=== PATIENT | female | born 1950 | race Caucasian/White ===

== ENCOUNTER → 2016-11-25 | Outpatient (CLI) | payer BC ==
[~2016-11-25] MED LIST: CLARITIN10 MG PO; CLEOCIN150 MG PO; CORDROL20 MG PO; CORTISPORIN 1%-10 M1 OT; DARVOCET N 1001 TAB PO; FENOFIBRATE130 M1 PO; HYDROCODONE BIT1 T11 PO; MEDROL DOSEPAK4 MG PO; NAPROSYN500 MG PO; PENICILLIN VK500 MG PO; PEPCID20 MG PO; PRILOSEC20 M1 PO; PRILOSEC20 MG PO; PRINIVIL5 MG PO; SEPTRA DS 800 M1 TAB PO; TORADOL10 MG PO; TYLENOL WITH CO1 TA1 PO; ULTRAM50 MG PO; ZOCOR40 MG PO; ZOFRAN ODT4 MG PO; ZOFRAN ODT8 MG PO; ZOFRAN4 MG PO; ZYRTEC10 M1 PO; [UNRECOGNIZED DRUG - REMARK]
[2016-11-25 12:45] LABS: BASO % 0.3 % (0.0-1.0); EOS # 0.1 10*3/uL (0.0-0.4); EOS % 0.7 % (1.0-4.0); HEMATOCRIT 43.7 % (37.0-47.0); HEMOGLOBIN 14.3 g/dl (12.0-16.0); IG # 0.1 10*3/uL (0.0-0.1); LYMPH % 22.6 % (27.0-41.0); MEAN CELL VOLUME 91.2 fl (81.0-99.0); MEAN CORPUSCULAR HGB 29.9 pg (27.0-31.0); MEAN CORPUSCULAR HGB CONC 32.7 g/dl (33.0-37.0); MEAN PLATELET VOLUME 10.2 fl (9.6-12.3); MONO # 0.9 10*3/uL (0.1-1.0); MONO % 6.4 % (3.0-9.0); NEUT # 9.3 10*3/uL (2.3-7.9); NEUT % 69.6 % (47.0-73.0); PLATELET COUNT AUTOMATED 264 10*3/uL (130-400); RED BLOOD COUNT 4.79 10*6/uL (4.10-5.10); RED CELL DISTRI WIDTH 12.9 % (0-14.5); WHITE BLOOD COUNT 13.4 10*3/uL (4.8-10.8)
[2016-11-25 12:56] LABS: C-REACTIVE PROTEIN 2.1 MG/DL (0-0.3); URIC ACID 6.6 mg/dL (2.6-6.0)
== END | disposition home or self-care (01) ==
LOC: LAB 12:26
PROVIDERS: Physician Assistant
DX: M25.562 Pain in left knee (principal)

== ENCOUNTER → 2016-11-26 | Outpatient (CLI) | payer BC | END | disposition home or self-care (01) | LOC: MRI 12:58 | DX: M17.12 Unilateral primary osteoarthritis, left knee (principal); M11.262 Other chondrocalcinosis, left knee; M25.562 Pain in left knee; M25.462 Effusion, left knee ==

== ENCOUNTER → 2016-11-28 | Outpatient (CLI) | payer BC ==
[2016-11-28 11:08] LABS: BODY FLUID RBC 3000 /uL; BODY FLUID WBC 2144 /uL
[2016-11-28 11:53] LABS: BF LYMPHOCYTES 10 %; BF MACROPHAGES 41 %; BF NEUTROPHILS 49 %; BODY FLUID TYPE SYNOVIAL
== END | disposition home or self-care (01) ==
LOC: LAB 10:31
PROVIDERS: Orthopaedic Surgery
DX: M25.462 Effusion, left knee (principal)

== ENCOUNTER → 2017-06-04 | Outpatient (CLI) | payer BC ==
[2017-06-04 08:30] LABS: BASO % 0.5 % (0.0-1.0); EOS # 0.1 10*3/uL (0.0-0.4); EOS % 1.5 % (1.0-4.0); HEMATOCRIT 44.3 % (37.0-47.0); HEMOGLOBIN 14.6 g/dl (12.0-16.0); LYMPH # 2.1 10*3/uL (1.3-4.4); LYMPH % 34.7 % (27.0-41.0); MEAN CELL VOLUME 92.9 fl (81.0-99.0); MEAN CORPUSCULAR HGB 30.6 pg (27.0-31.0); MEAN PLATELET VOLUME 10.1 fl (9.6-12.3); MONO # 0.4 10*3/uL (0.1-1.0); MONO % 6.3 % (3.0-9.0); NEUT # 3.4 10*3/uL (2.3-7.9); NEUT % 56.5 % (47.0-73.0); PLATELET COUNT AUTOMATED 247 10*3/uL (130-400); RED BLOOD COUNT 4.77 10*6/uL (4.10-5.10); WHITE BLOOD COUNT 6.1 10*3/uL (4.8-10.8)
[2017-06-04 08:38] LABS: ALBUMIN 3.7 gm/dl (3.1-4.5); ALKALINE PHOSPHATASE 91 U/L (45-117); BUN 18 mg/dl (7-24); CHLORIDE 104 mmol/L (98-107); CHOLESTEROL 226 mg/dL (<200); CREATININE 0.74 mg/dL (0.55-1.02); HDL CHOLESTEROL 44 mg/dl (40-60); LDL CHOLESTEROL 121 mg/dL (9-159); POTASSIUM 4.8 mmol/L (3.5-5.1); SGOT/AST 11 IU/L (3-35); SGPT/ALT 20 U/L (12-78); SODIUM 138 mmol/L (136-145); TOTAL PROTEIN 7.8 gm/dL (6.4-8.2); TRIGLYCERIDES 307 mg/dl (<150); VLDL CHOLESTEROL 61 mg/dL (6-40)
== END | disposition home or self-care (01) ==
LOC: LAB 07:51
PROVIDERS: Family Medicine
DX: G43.009 Migraine without aura, not intractable, without status migrainosus (principal); R53.83 Other fatigue; E78.00 Pure hypercholesterolemia, unspecified

== ENCOUNTER 2018-11-05 14:36 | Inpatient (IN) | payer MEDICARE ==
[~2018-11-05] VITALS: Ht 152.4 cm; Wt 70.0 kg
--- NOTE | ~2018-11-05 | EKG ---
[place], [place] ELECTROCARDIOGRAM REPORT NAME: UNIQUE ROBLES UNIT #: [id number] ROOM: 515 DOCTOR: ANGLE DRAFT REPORT BIRTHDATE: [birth year] [facility] Test Date: 2018-11-05 Test Time: 14:40:58 Pat Name: UNIQUE ROBLES Department: Room: [facility] Gender: F Application Architect Manager: : 1950 Requested By: GISELLE REARDON Order Number: [id number] Reading MD: Jarvis Oseguera MD Measurements Intervals [place] Rate: 71 P: 12 ID: 137 QRS: -21 QRSD: 88 T: 39 QT: 362 QTc: 394 Interpretive Statements Sinus rhythm Borderline left axis deviation Low voltage, precordial leads Electronically Signed On 11-06-2018 13:46:58 PDT by Jarvis Oseguera MD CM:EKGRPT:ELECTROCARDIOGRAM REPORT [id number] GISELLE DELGADO DRAFT REPORT GISELLE REARDON DO
--- NOTE | ~2018-11-05 | ST ---
[place], [place] EXERCISE STRESS TEST REPORT NAME: UNIQUE ROBLES UNIT #: [id number] ROOM: 515 DOCTOR: DARIO MC MD BIRTHDATE: [birth year] DOS: 11/06/2018 LEXISCAN STRESS EKG REFERRING PHYSICIAN: Dr. Veras. INDICATION: Central chest pain. The patient underwent standard protocol Lexiscan stress EKG. Baseline EKG showed normal sinus rhythm, nonspecific ST-T wave changes with the baseline heart rate of 60 with blood pressure 116/64. The patient's peak heart rate was 108 with a blood pressure 140/80. The patient had no overt chest pain, had some chest heaviness with some nonspecific ST-T wave changes and no arrhythmias. SUMMARY OF FINDINGS: Unremarkable Lexiscan stress EKG. Please see separate report for perfusion scan imaging results. DARIO MC MD CM:STRESS:EXERCISE STRESS TEST REPORT [id number] DARIO MC MD
--- NOTE | ~2018-11-05 | PR ---
[place], [place] PROGRESS NOTE NAME: UNIQUE ROBLES UNIT #: [id number] ROOM: 515 DOCTOR: SANAZ QUIÑONEZ MD BIRTHDATE: [birth year] DOS: 11/08/2018 CARDIOLOGY FOLLOWUP REASON FOR VISIT: Abnormal stress test and chest pain. SUBJECTIVE: The patient is feeling better. She had one episode of chest pain this morning and resolved without any intervention. It is midsternal pain like a pressure, came at rest with no associated symptoms, no radiation. She denies any palpitation or dizziness, no PND, no orthopnea. No nausea, vomiting or diarrhea. REVIEW OF SYSTEMS: Review of the 10 system negative except as mentioned above. RHYTHM STRIPS: The patient is in sinus rhythm. PHYSICAL EXAMINATION: VITAL SIGNS: Blood pressure 114/70, pulse 59, respiration rate 20, weight 70 kilos. GENERAL: Alert, comfortable, in no acute distress. HEAD AND NECK: Pupils are round and equal, no jaundice. Tongue was moist and pharynx clear. NECK: Supple, no distended neck veins, no carotid bruit. CHEST: Symmetrical, nontender. LUNGS: Clear to auscultation bilaterally. HEART: Regular rhythm, no S3. ABDOMEN: Benign, nontender. Bowel sounds normal. EXTREMITIES: No edema. Distal pulses palpable. SKIN: Warm and dry. No cyanosis, no clubbing. MEDICATIONS AND LABORATORY DATA: Reviewed. IMPRESSION: 1. Chest pain, myocardial infarction ruled out. 2. Abnormal stress test with a large anteroapical ischemia. 3. Coronary artery disease, cardiac catheterization in June 2018 in [place] showed single-vessel disease with 50-70% per the patient, reports not available. 4. Hypertension. 5. Sinus bradycardia. RECOMMENDATIONS: Continue current medications. She will be undergoing cardiac catheterization tomorrow at [facility]. Again risks, benefits and complications were discussed and she is agreeable. No family at bedside at the time of examination. The patient to follow up with [facility] at [facility] after discharge. [place], [place] PROGRESS NOTE NAME: UNIQUE ROBLES UNIT #: [id number] ROOM: 515 DOCTOR: SANAZ QUIÑONEZ MD BIRTHDATE: [birth year] SANAZ QUIÑONEZ MD CM:FOREST 55 SANAZ QUIÑONEZ MD 11/09/18 1329 interface
--- NOTE | ~2018-11-05 | EKG ---
[place], [place] ELECTROCARDIOGRAM REPORT NAME: UNIQUE ROBLES UNIT #: [id number] ROOM: [facility] DOCTOR: ANGLE DRAFT REPORT BIRTHDATE: [birth year] [facility] Test Date: 2018-11-06 Test Time: 15:22:12 Pat Name: UNIQUE ROBLES Department: Room: [facility] 1 Gender: F International Account Representative: Hiwot Abarca : 1950 Requested By: RICHI VELAZCO Order Number: [id number] Reading MD: Julia Leach Measurements Intervals [place] Rate: 62 P: 4 HI: 136 QRS: -12 QRSD: 87 T: 28 QT: 398 QTc: 405 Interpretive Statements Sinus rhythm Low voltage, precordial leads Compared to ECG 11/05/2018 14:40:58 No significant changes Electronically Signed On 11-08-2018 11:02:21 PDT by Julia Leach CM:EKGRPT:ELECTROCARDIOGRAM REPORT [id number] RICHI DELGADO DRAFT REPORT RICHI VELAZCO DO
--- NOTE | ~2018-11-05 | PR ---
[place], [place] PROGRESS NOTE NAME: UNIQUE ROBLES UNIT #: [id number] ROOM: 515 DOCTOR: SANAZ QUIÑONEZ MD BIRTHDATE: [birth year] DOS: 11/07/2018 CARDIOLOGY PROGRESS NOTE REASON FOR VISIT: Chest pain, abnormal stress test. The patient currently denies chest pain. No shortness of breath. No palpitations or dizziness. No edema, no orthopnea. No nausea, vomiting, diarrhea. No bladder or bowel symptoms. REVIEW OF SYSTEMS: Review of the 10 systems negative except as mentioned above. RHYTHM STRIPS: The patient was in sinus rhythm. PHYSICAL EXAMINATION: VITAL SIGNS: Blood pressure 110/70, pulse 53, respirations 20. Weight is 70 pounds, BMI 30.1. GENERAL: Alert, comfortable, in no acute distress. HEAD AND NECK: Pupils are round and equal. Tongue is moist and pharynx clear. NECK: Supple, no distended neck veins, no carotid bruit. CHEST: Symmetrical, nontender. LUNGS: Clear to auscultation bilaterally. HEART: Irregularly irregular rhythm, no S3. ABDOMEN: Benign, nontender. Bowel sounds normal. EXTREMITIES: Showed no edema. Distal pulses palpable. SKIN: Warm and dry. No cyanosis, no clubbing. RECTAL: Deferred. GENITOURINARY: Deferred. MEDICATIONS AND LABS: Reviewed. IMPRESSION: 1. Chest pain, myocardial infarction, ruled out. 2. Abnormal stress test with a large anteroapical ischemia. 3. History of coronary artery disease by cardiac catheterization in 06/2018 in [place]. 4. Hypertension. 5. Dyslipidemia. 6. Sinus bradycardia. RECOMMENDATIONS: Continue current medication. The patient seen by cardiac, catheterization on Friday. Risks, benefits, and alternatives were discussed with the patient and her who is at bedside and all questions answered. [place], [place] PROGRESS NOTE NAME: UNIQUE ROBLES UNIT #: [id number] ROOM: 515 DOCTOR: SANAZ QUIÑONEZ MD BIRTHDATE: [birth year] SANAZ QUIÑONEZ MD CM:PNTRANS 56 [id number] SANAZ QUIÑONEZ MD 11/26/18 0738 interface
[2018-11-05 14:46] VITALS: BP 125/59
[2018-11-05 15:03] LABS: BASO % 0.5 % (0.0-1.0); EOS # 0.1 10*3/uL (0.0-0.4); EOS % 1.6 % (1.0-4.0); HEMATOCRIT 39.3 % (37.0-47.0); HEMOGLOBIN 13.4 g/dl (12.0-16.0); LYMPH # 3.1 10*3/uL (1.3-4.4); LYMPH % 48.6 % (27.0-41.0); MEAN CELL VOLUME 90.8 fl (81.0-99.0); MEAN CORPUSCULAR HGB 30.9 pg (27.0-31.0); MEAN CORPUSCULAR HGB CONC 34.1 g/dl (33.0-37.0); MEAN PLATELET VOLUME 10.2 fl (9.6-12.3); MONO # 0.5 10*3/uL (0.1-1.0); MONO % 7.6 % (3.0-9.0); NEUT # 2.6 10*3/uL (2.3-7.9); NEUT % 41.5 % (47.0-73.0); PLATELET COUNT AUTOMATED 222 10*3/uL (130-400); RED BLOOD COUNT 4.33 10*6/uL (4.10-5.10); RED CELL DISTRI WIDTH 12.7 % (0-14.5); WHITE BLOOD COUNT 6.3 10*3/uL (4.8-10.8)
[2018-11-05 15:12] LABS: ACT PARTIAL THROMBO TIME 22.6 SECONDS (20.8-31.5)
[2018-11-05 15:20] VITALS: BP 135/68
[2018-11-05 15:29] LABS: ALBUMIN 3.6 gm/dl (3.1-4.5); ALKALINE PHOSPHATASE 89 U/L (45-117); BUN 22 mg/dl (7-24); CHLORIDE 107 mmol/L (98-107); CREATININE 0.97 mg/dL (0.55-1.02); SGOT/AST 13 IU/L (3-35); SGPT/ALT 18 U/L (12-78); SODIUM 142 mmol/L (136-145); TOTAL PROTEIN 7.1 gm/dL (6.4-8.2)
[2018-11-05 15:33] LABS: TROPONIN I < 0.015 ng/ml (<0.045)
[2018-11-05 15:52] VITALS: BP 110/63
[2018-11-05 16:16] VITALS: BP 127/64
[2018-11-05 16:55] VITALS: BP 123/62
[2018-11-05] MEDS ORDERED: ROSUVASTATIN CA10 MG PO (17:25)
[2018-11-05] MEDS ORDERED: METOPROLOL25 MG PO (17:26)
[2018-11-05] MEDS ORDERED: AMLODIPINE BESYL5 MG PO (17:27)
[2018-11-05] MEDS ORDERED: IRON325 M1 PO (17:29)
[2018-11-05] MEDS ORDERED: ASPIRIN ADULT L81 M2 PO (17:30)
[2018-11-05] MEDS ORDERED: NATROL 5-HTP50 MG PO (17:31)
[2018-11-05 20:00] VITALS: BP 121/66
[2018-11-06] VITALS: BP 102/67
[2018-11-06 06:14] LABS: BASO % 0.6 % (0.0-1.0); EOS # 0.2 10*3/uL (0.0-0.4); EOS % 2.3 % (1.0-4.0); HEMATOCRIT 41.3 % (37.0-47.0); HEMOGLOBIN 13.1 g/dl (12.0-16.0); LYMPH # 3.3 10*3/uL (1.3-4.4); LYMPH % 47.6 % (27.0-41.0); MEAN CELL VOLUME 93.4 fl (81.0-99.0); MEAN CORPUSCULAR HGB 29.6 pg (27.0-31.0); MEAN CORPUSCULAR HGB CONC 31.7 g/dl (33.0-37.0); MEAN PLATELET VOLUME 10.4 fl (9.6-12.3); MONO # 0.5 10*3/uL (0.1-1.0); NEUT % 42.2 % (47.0-73.0); PLATELET COUNT AUTOMATED 203 10*3/uL (130-400); RED BLOOD COUNT 4.42 10*6/uL (4.10-5.10); RED CELL DISTRI WIDTH 12.9 % (0-14.5)
[2018-11-06 06:45] LABS: ALBUMIN 3.4 gm/dl (3.1-4.5); ALKALINE PHOSPHATASE 78 U/L (45-117); BUN 17 mg/dl (7-24); CHLORIDE 107 mmol/L (98-107); CHOLESTEROL 110 mg/dL (<200); HDL CHOLESTEROL 44 mg/dl (40-60); LDL CHOLESTEROL 41 mg/dL (9-159); PHOSPHOROUS 4.1 mg/dL (2.5-4.9); POTASSIUM 3.8 mmol/L (3.5-5.1); SGOT/AST 16 IU/L (3-35); SGPT/ALT 16 U/L (12-78); SODIUM 142 mmol/L (136-145); TOTAL PROTEIN 6.7 gm/dL (6.4-8.2); TRIGLYCERIDES 127 mg/dl (<150); VLDL CHOLESTEROL 25 mg/dL (6-40)
[2018-11-06 12:00] VITALS: BP 124/59
[2018-11-06 16:00] VITALS: BP 136/80
[2018-11-06 20:00] VITALS: BP 100/67
[2018-11-07] VITALS: BP 111/69
[2018-11-07 08:00] VITALS: BP 110/70
[2018-11-07 12:00] VITALS: BP 106/60
[2018-11-07 16:00] VITALS: BP 93/60
[2018-11-07 20:00] VITALS: BP 115/66
[2018-11-08] VITALS: BP 106/62
[2018-11-08 07:03] LABS: BASO % 0.5 % (0.0-1.0); EOS # 0.2 10*3/uL (0.0-0.4); EOS % 2.6 % (1.0-4.0); LYMPH # 3.6 10*3/uL (1.3-4.4); MEAN CELL VOLUME 94.3 fl (81.0-99.0); MEAN CORPUSCULAR HGB 30.7 pg (27.0-31.0); MEAN CORPUSCULAR HGB CONC 32.5 g/dl (33.0-37.0); MEAN PLATELET VOLUME 10.2 fl (9.6-12.3); MONO # 0.5 10*3/uL (0.1-1.0); MONO % 7.4 % (3.0-9.0); NEUT # 2.3 10*3/uL (2.3-7.9); NEUT % 35.2 % (47.0-73.0); PLATELET COUNT AUTOMATED 207 10*3/uL (130-400); RED BLOOD COUNT 4.24 10*6/uL (4.10-5.10); WHITE BLOOD COUNT 6.6 10*3/uL (4.8-10.8)
[2018-11-08 07:32] LABS: BUN 14 mg/dl (7-24); CHLORIDE 107 mmol/L (98-107); CREATININE 0.78 mg/dL (0.55-1.02); POTASSIUM 4.7 mmol/L (3.5-5.1); SODIUM 141 mmol/L (136-145)
[2018-11-08 08:00] VITALS: BP 114/70; BP 116/54
[2018-11-08 12:00] VITALS: BP 100/62
[2018-11-08 16:00] VITALS: BP 108/67
[2018-11-08 20:00] VITALS: BP 123/64
[2018-11-09] VITALS: BP 101/47
[2018-11-12] MEDS ORDERED: GOOD NEIGHBOR P20 MG PO (04:10)
[2018-11-12] MEDS ORDERED: NITROGLYCERIN0.4 MG SL (04:11)
[2018-11-12] MEDS ORDERED: BRILINTA90 M1 PO (04:12)
[2018-11-12] MEDS ORDERED: CRESTOR40 M1 PO (04:12)
[2018-11-13] MEDS ORDERED: LOPRESSOR25 MG PO (11:41)
[2018-11-13] MEDS ORDERED: NORVASC2.5 MG PO (11:41)
[2018-11-13] MEDS ORDERED: IMDUR SA30 MG PO (11:41)
[2018-11-13] MEDS ORDERED: BRILINTA90 M1 PO (11:41)
[2019-02-24] MEDS ORDERED: PROTONIX40 MG PO (09:09)
[2019-02-24] MEDS ORDERED: LOPRESSOR25 MG PO (09:09)
[2019-02-24] MEDS ORDERED: NORVASC2.5 MG PO (09:10)
== END 2018-11-09 09:37 | disposition other institution (70) | DRG 311 ==
LOC: ED 14:36 → 5E 16:14 → EDHOLD 16:14 → 5E 16:21
PROVIDERS: Emergency Medicine; Student in an Organized Health Care Education/Training Program; ADMIT Internal Medicine
DX: I24.9 Acute ischemic heart disease, unspecified (principal); I10 Essential (primary) hypertension; E83.41 Hypermagnesemia; E78.5 Hyperlipidemia, unspecified; M19.90 Unspecified osteoarthritis, unspecified site; K21.9 Gastro-esophageal reflux disease without esophagitis; G43.909 Migraine, unspecified, not intractable, without status migrainosus; Z87.891 Personal history of nicotine dependence; Z88.2 Allergy status to sulfonamides; Z90.710 Acquired absence of both cervix and uterus; Z72.89 Other problems related to lifestyle; Z82.3 Family history of stroke; Z79.82 Long term (current) use of aspirin

== ENCOUNTER → 2019-02-24 | Outpatient (CLI) | payer MEDICARE ==
[~2019-02-24] MED LIST changes: +AMLODIPINE BESYL5 MG PO; +ASPIRIN ADULT L81 M2 PO; +BRILINTA90 M1 PO; +CRESTOR40 M1 PO; +GOOD NEIGHBOR P20 MG PO; +IMDUR SA30 MG PO; +IRON325 M1 PO; +LOPRESSOR25 MG PO; +METOPROLOL25 MG PO; +NATROL 5-HTP50 MG PO; +NITROGLYCERIN0.4 MG SL; +NORVASC2.5 MG PO; +PROTONIX40 MG PO; +ROSUVASTATIN CA10 MG PO
--- NOTE | ~2019-02-24 | ST ---
[place], [place] EXERCISE STRESS TEST REPORT NAME: UNIQUE ROBLES UNIT #: [id number] ROOM: DOCTOR: CELY GILBERT MD BIRTHDATE: [birth year] DOS: 02/24/2019 PHARMACOLOGICAL NUCLEAR STRESS TEST REASON FOR TESTING: Atypical chest pain. EKG: Baseline EKG, normal sinus rhythm, normal EKG. PROCEDURE: After informed consent was obtained, the patient received a rapid infusion of regadenoson 0.4 mg IV followed by saline flush. The patient experienced chest tightness and dyspnea symptoms. There were no EKG changes. There was an appropriate heart rate response to the infusion. Isotope was injected 40 seconds later. IMPRESSION: Well tolerated pharmacological stress test. Please see the separate imaging report for further details of the stress test results. Cely Gilbert MD CM:STRESS:EXERCISE STRESS TEST REPORT [id number] CELY GILBERT MD
--- NOTE | 2019-02-24 08:15 | NUR ---
INFORMED CONSENT OBTAINED FOR A LEXISCAN STRESS TEST WITH DR ROLDAN. RESTING EKG SINUS MAXIMUS WITH A HT RT OF 58, AND A BP OF 120/76. LUNG SOUNDS CLEAR WITH AN SPO2 OF 100% VIA RA. COMPLETED ONE MINUTE OF A LEXISCAN PROTOCOL RECEIVING LEXISCAN 0.4 MG OVER 10 SECONDS. DEVELOPED LIGHTHEADEDNESS, SOB, CHEST AND BACK DISCOMFORT WELL BEING SHAKY. ALL SYMPTOMS RELIEVED IN RECOVERY. HAD A PEAK HT RT OF 116, WITH A BP OF 136/78. LAST RECOVERY HT RT OF 85, WITH A BP OF 130/80. AWAITING NUCLEAR IMAGING IN STABLE CONDITION.
== END | disposition home or self-care (01) ==
LOC: CARD 01:07
DX: R07.2 Precordial pain (principal); I25.119 Atherosclerotic heart disease of native coronary artery with unspecified angina pectoris; R53.81 Other malaise; R07.89 Other chest pain

== ENCOUNTER → 2019-02-26 | Outpatient (CLI) | payer MEDICARE ==
[2019-02-26 13:22] LABS: CREATININE 1.08 mg/dL (0.55-1.02)
== END | disposition home or self-care (01) ==
LOC: LAB 00:02 → CT 13:00 → LAB 14:00 → US 15:00
PROVIDERS: Physician Assistant Medical
DX: K57.30 Diverticulosis of large intestine without perforation or abscess without bleeding (principal); R31.9 Hematuria, unspecified; R10.2 Pelvic and perineal pain; Z90.710 Acquired absence of both cervix and uterus

== ENCOUNTER → 2020-04-21 | Outpatient (CLI) | payer MEDICARE ==
[2020-04-21 08:28] LABS: BASO % 0.5 % (0.0-1.0); EOS # 0.1 10*3/uL (0.0-0.4); EOS % 1.1 % (1.0-4.0); HEMATOCRIT 45.8 % (37.0-47.0); LYMPH # 2.2 10*3/uL (1.3-4.4); LYMPH % 27.8 % (27.0-41.0); MEAN CELL VOLUME 92.9 fl (81.0-99.0); MEAN CORPUSCULAR HGB CONC 32.3 g/dl (33.0-37.0); MEAN PLATELET VOLUME 10.2 fl (9.6-12.3); MONO # 0.7 10*3/uL (0.1-1.0); MONO % 8.3 % (3.0-9.0); NEUT # 4.9 10*3/uL (2.3-7.9); NEUT % 61.9 % (47.0-73.0); PLATELET COUNT AUTOMATED 216 10*3/uL (130-400); RED BLOOD COUNT 4.93 10*6/uL (4.10-5.10); RED CELL DISTRI WIDTH 13.1 % (0-14.5); WHITE BLOOD COUNT 7.9 10*3/uL (4.8-10.8)
[2020-04-21 08:54] LABS: ALKALINE PHOSPHATASE 78 U/L (45-117); BUN 22 mg/dl (7-24); CHLORIDE 104 mmol/L (98-107); CHOLESTEROL 126 mg/dL (<200); CREATININE 1.07 mg/dL (0.55-1.02); HDL CHOLESTEROL 60 mg/dl (40-60); LDL CHOLESTEROL 41 mg/dL (9-159); POTASSIUM 3.8 mmol/L (3.5-5.1); SGOT/AST 10 IU/L (3-35); SGPT/ALT 25 U/L (12-78); SODIUM 138 mmol/L (136-145); TOTAL PROTEIN 8.1 gm/dL (6.4-8.2); TRIGLYCERIDES 124 mg/dl (<150); VLDL CHOLESTEROL 25 mg/dL (6-40)
[2020-04-21 08:55] LABS: URIC ACID 3.8 mg/dL (2.6-6.0)
[2020-04-21 08:57] LABS: BACTERIA 2+; BILIRUBIN NEGATIVE; BLOOD 1+ (NEGATIVE); CLARITY CLEAR (CLEAR); COLOR YELLOW (YELLOW); GLUCOSE NEGATIVE; KETONE NEGATIVE; LEUKO ESTERASE TRACE (NEGATIVE); NITRITE NEGATIVE (NEGATIVE); PH 6.5 (4.5-8.0)
[2020-04-21 08:58] LABS: MUCOUS 1+
[2020-04-21 09:14] LABS: PTH INTACT 35.6 pg/mL (18.5-88.0); VITAMIN D, 25-HYDROXY 53.5 ng/mL (30-100)
[2020-04-22 10:07] LABS: HEPATITIS B SURFACE AB Non Reactive (.); HEPATITIS B SURFACE AG Negative (Negative); TOTAL PROTEIN, SERUM 7.1 g/dL (6.0-8.5)
[2020-04-22 12:11] LABS: ANTI-STREPTOLYSIN O AB 34.3 IU/mL (0.0-200.0); COMPLEMENT C4 30 mg/dL (14-44)
[2020-04-22 13:06] LABS: CREATININE,URINE 111.1 mg/dL (Not Estab.)
[2020-04-24 12:06] LABS: ANTI-DSDNA ANTIBODIES 2 IU/mL (0-9)
[2020-04-25 14:11] LABS: A/G RATIO 1.3 (0.7-1.7); ALPHA-1-GLOBULIN 0.2 g/dL (0.0-0.4); ALPHA-2-GLOBULIN 0.8 g/dL (0.4-1.0); GLOBULIN, TOTAL 3.1 g/dL (2.2-3.9); M-SPIKE Not Observed g/dL (Not Observed)
[2020-04-25 17:10] LABS: ATYPICAL PANCA <1:20 titer (Neg:<1:20); CYTOPLASMIC (C-ANCA) <1:20 titer (Neg:<1:20)
[2020-04-26 06:07] LABS: ANTI-DNASE B STREP AB 82 U/mL (0-120)
[2020-04-26 15:10] LABS: ALBUMIN, URINE 23.6 % (.); ALPHA-1-GLOBULIN, URINE 5.6 % (.); ALPHA-2-GLOBULIN, URINE 31.4 % (.); BETA GLOBULIN, URINE 26.2 % (.); GAMMA GLOBULIN, URINE 13.2 % (.); M-SPIKE, % Comment: % (Not Observed); PROTEIN,TOTAL - URINE RANDOM 130.1 mg/dL (Not Estab.)
== END | disposition home or self-care (01) ==
LOC: LAB 07:44
PROVIDERS: Internal Medicine Nephrology; ATTEND Family Medicine
DX: I12.9 Hypertensive chronic kidney disease with stage 1 through stage 4 chronic kidney disease, or unspecified chronic kidney disease (principal); N18.2 Chronic kidney disease, stage 2 (mild); I25.10 Atherosclerotic heart disease of native coronary artery without angina pectoris; R31.9 Hematuria, unspecified; R80.9 Proteinuria, unspecified; E55.9 Vitamin D deficiency, unspecified; Z79.899 Other long term (current) drug therapy

== ENCOUNTER → 2020-06-02 | Outpatient (CLI) | payer MEDICARE | END | disposition home or self-care (01) | LOC: RESCLI 09:00 | PROVIDERS: ATTEND Family Medicine | DX: Z95.5 Presence of coronary angioplasty implant and graft (principal); I10 Essential (primary) hypertension; K21.9 Gastro-esophageal reflux disease without esophagitis; Z86.79 Personal history of other diseases of the circulatory system; Z79.899 Other long term (current) drug therapy; Z23 Encounter for immunization; Z98.890 Other specified postprocedural states; Z88.0 Allergy status to penicillin ==

== ENCOUNTER → 2020-11-07 | Outpatient (CLI) | payer MEDICARE ==
[~2020-11-07] MED LIST changes: +CLOPIDOGREL75 MG PO; +DULCOLAX STOOL100 M1 PO; +LIFE-LINE GLUC480 ML PO; +OMEPRAZOLE40 MG PO; +VITAMIN B121000 MC1 PO; +VITAMIN D350 MCG PO
[2020-11-07 10:40] LABS: BASO % 0.3 % (0.0-1.0); EOS # 0.1 10*3/uL (0.0-0.4); EOS % 1.4 % (1.0-4.0); HEMATOCRIT 42.5 % (37.0-47.0); LYMPH # 1.9 10*3/uL (1.3-4.4); LYMPH % 31.3 % (27.0-41.0); MEAN CORPUSCULAR HGB 29.9 pg (27.0-31.0); MEAN CORPUSCULAR HGB CONC 31.8 g/dl (33.0-37.0); MEAN PLATELET VOLUME 10.2 fl (9.6-12.3); MONO # 0.5 10*3/uL (0.1-1.0); MONO % 7.6 % (3.0-9.0); NEUT # 3.5 10*3/uL (2.3-7.9); NEUT % 59.2 % (47.0-73.0); PLATELET COUNT AUTOMATED 194 10*3/uL (130-400); RED BLOOD COUNT 4.52 10*6/uL (4.10-5.10); RED CELL DISTRI WIDTH 13.2 % (0-14.5); WHITE BLOOD COUNT 5.9 10*3/uL (4.8-10.8)
[2020-11-07 11:13] LABS: ALBUMIN 3.7 gm/dl (3.1-4.5); BUN 17 mg/dl (7-24); CHLORIDE 107 mmol/L (98-107); CHOLESTEROL 113 mg/dL (<200); CREATININE 0.86 mg/dL (0.55-1.02); POTASSIUM 4.2 mmol/L (3.5-5.1); SGOT/AST 15 IU/L (3-35); SGPT/ALT 26 U/L (12-78); SODIUM 139 mmol/L (136-145); TOTAL PROTEIN 7.5 gm/dL (6.4-8.2); TRIGLYCERIDES 154 mg/dl (<150); VLDL CHOLESTEROL 31 mg/dL (6-40)
[2020-11-07 11:14] LABS: ALKALINE PHOSPHATASE 95 U/L (45-117); HDL CHOLESTEROL 51 mg/dl (40-60); LDL CHOLESTEROL 31 mg/dL (9-159)
== END | disposition home or self-care (01) ==
LOC: LAB 10:17
PROVIDERS: ATTEND Family Medicine
DX: I25.10 Atherosclerotic heart disease of native coronary artery without angina pectoris (principal)

== ENCOUNTER → 2020-11-24 | Outpatient (CLI) | payer MEDICARE | END | disposition home or self-care (01) | LOC: CARD 00:40 | PROVIDERS: ATTEND Internal Medicine Cardiovascular Disease | DX: I10 Essential (primary) hypertension (principal); R07.2 Precordial pain ==

== ENCOUNTER → 2021-05-21 | Outpatient (CLI) | payer MEDICARE | END | disposition home or self-care (01) | LOC: RESCLI 06:49 | PROVIDERS: ATTEND Internal Medicine Nephrology | DX: I25.10 Atherosclerotic heart disease of native coronary artery without angina pectoris (principal); I10 Essential (primary) hypertension; K21.9 Gastro-esophageal reflux disease without esophagitis; K59.00 Constipation, unspecified; E56.9 Vitamin deficiency, unspecified; E53.8 Deficiency of other specified B group vitamins; E55.9 Vitamin D deficiency, unspecified; Z95.5 Presence of coronary angioplasty implant and graft; Z86.79 Personal history of other diseases of the circulatory system; Z87.891 Personal history of nicotine dependence; Z90.710 Acquired absence of both cervix and uterus; Z98.890 Other specified postprocedural states; Z79.82 Long term (current) use of aspirin; Z79.899 Other long term (current) drug therapy ==

== ENCOUNTER → 2021-05-31 | Outpatient (CLI) | payer MEDICARE ==
[2021-05-31 08:30] LABS: BASO % 0.6 % (0.0-1.0); EOS # 0.1 10*3/uL (0.0-0.4); EOS % 2.3 % (1.0-4.0); HEMATOCRIT 43.7 % (37.0-47.0); LYMPH % 32.7 % (27.0-41.0); MEAN CELL VOLUME 93.4 fl (81.0-99.0); MEAN CORPUSCULAR HGB 29.5 pg (27.0-31.0); MEAN CORPUSCULAR HGB CONC 31.6 g/dl (33.0-37.0); MEAN PLATELET VOLUME 10.5 fl (9.6-12.3); MONO # 0.5 10*3/uL (0.1-1.0); MONO % 8.6 % (3.0-9.0); NEUT # 3.4 10*3/uL (2.3-7.9); NEUT % 55.5 % (47.0-73.0); PLATELET COUNT AUTOMATED 222 10*3/uL (130-400); RED BLOOD COUNT 4.68 10*6/uL (4.10-5.10); RED CELL DISTRI WIDTH 13.6 % (0-14.5); WHITE BLOOD COUNT 6.2 10*3/uL (4.8-10.8)
[2021-05-31 08:33] LABS: BILIRUBIN Negative (Negative); BLOOD 1+ (Negative); CLARITY Cloudy (Clear); COLOR Dark Yellow (Yellow); GLUCOSE Negative (Negative); KETONE Negative (Negative); LEUKO ESTERASE 1+ (Negative); NITRITE Negative (Negative); PH 5.5 (4.5-8.0); SPECIFIC GRAVITY 1.015 (1.001-1.030)
[2021-05-31 08:46] LABS: ALBUMIN 3.8 gm/dl (3.1-4.5); ALKALINE PHOSPHATASE 73 U/L (45-117); BUN 23 mg/dl (7-24); CHLORIDE 106 mmol/L (98-107); CHOLESTEROL 109 mg/dL (<200); LDL CHOLESTEROL 31 mg/dL (9-159); POTASSIUM 4.2 mmol/L (3.5-5.1); SGOT/AST 19 IU/L (3-35); SGPT/ALT 31 U/L (12-78); SODIUM 138 mmol/L (136-145); TOTAL PROTEIN 7.6 gm/dL (6.4-8.2); TRIGLYCERIDES 140 mg/dl (<150)
[2021-05-31 08:47] LABS: URINE CREATININE RANDOM 80.6 mg/dL
[2021-05-31 10:37] LABS: BACTERIA 3+; MUCOUS 2+
== END | disposition home or self-care (01) ==
LOC: LAB 07:59
PROVIDERS: Internal Medicine Nephrology; ATTEND Family Medicine
DX: R80.9 Proteinuria, unspecified (principal); I25.10 Atherosclerotic heart disease of native coronary artery without angina pectoris; K21.9 Gastro-esophageal reflux disease without esophagitis; R73.9 Hyperglycemia, unspecified; R31.9 Hematuria, unspecified; R73.01 Impaired fasting glucose; I12.9 Hypertensive chronic kidney disease with stage 1 through stage 4 chronic kidney disease, or unspecified chronic kidney disease; N18.2 Chronic kidney disease, stage 2 (mild); E55.9 Vitamin D deficiency, unspecified

== ENCOUNTER → 2022-02-20 | Outpatient (CLI) | payer MEDICARE ==
[2022-02-20 10:20] LABS: BASO % 0.4 % (0.0-1.0); EOS # 0.1 10*3/uL (0.0-0.4); EOS % 1.6 % (1.0-4.0); HEMATOCRIT 44.8 % (37.0-47.0); MEAN CELL VOLUME 94.1 fl (81.0-99.0); MEAN CORPUSCULAR HGB 30.5 pg (27.0-31.0); MEAN CORPUSCULAR HGB CONC 32.4 g/dl (33.0-37.0); MEAN PLATELET VOLUME 10.4 fl (9.6-12.3); MONO # 0.4 10*3/uL (0.1-1.0); MONO % 7.2 % (3.0-9.0); NEUT # 3.2 10*3/uL (2.3-7.9); NEUT % 55.6 % (47.0-73.0); PLATELET COUNT AUTOMATED 188 10*3/uL (130-400); RED BLOOD COUNT 4.76 10*6/uL (4.10-5.10); RED CELL DISTRI WIDTH 13.5 % (0-14.5); WHITE BLOOD COUNT 5.7 10*3/uL (4.8-10.8)
[2022-02-20 10:40] LABS: ALKALINE PHOSPHATASE 73 U/L (45-117); BUN 21 mg/dl (7-24); CHLORIDE 107 mmol/L (98-107); CHOLESTEROL 111 mg/dL (<200); CREATININE 0.83 mg/dL (0.55-1.02); LDL CHOLESTEROL 35 mg/dL (9-159); POTASSIUM 4.5 mmol/L (3.5-5.1); SGOT/AST 15 IU/L (3-35); SGPT/ALT 20 U/L (12-78); SODIUM 140 mmol/L (136-145); TOTAL PROTEIN 7.5 gm/dL (6.4-8.2); TRIGLYCERIDES 125 mg/dl (<150)
[2022-02-20 11:14] LABS: VITAMIN D, 25-HYDROXY 54.1 ng/mL (30-100)
== END ==
LOC: LAB 09:44
PROVIDERS: ATTEND Family Medicine
DX: I10 Essential (primary) hypertension (principal); I25.10 Atherosclerotic heart disease of native coronary artery without angina pectoris; E78.2 Mixed hyperlipidemia; K21.9 Gastro-esophageal reflux disease without esophagitis; E55.9 Vitamin D deficiency, unspecified

== ENCOUNTER → 2022-03-11 | Outpatient (CLI) | payer MEDICARE | END | disposition home or self-care (01) | LOC: RESCLI 05:47 | PROVIDERS: ATTEND Internal Medicine | DX: I11.9 Hypertensive heart disease without heart failure (principal); I25.10 Atherosclerotic heart disease of native coronary artery without angina pectoris; K59.00 Constipation, unspecified; E55.9 Vitamin D deficiency, unspecified; E53.8 Deficiency of other specified B group vitamins; M54.32 Sciatica, left side; E56.9 Vitamin deficiency, unspecified; Z86.79 Personal history of other diseases of the circulatory system; Z95.5 Presence of coronary angioplasty implant and graft; K21.9 Gastro-esophageal reflux disease without esophagitis; Z79.899 Other long term (current) drug therapy; Z79.82 Long term (current) use of aspirin; Z87.891 Personal history of nicotine dependence; Z90.710 Acquired absence of both cervix and uterus; Z90.722 Acquired absence of ovaries, bilateral; Z88.8 Allergy status to other drugs, medicaments and biological substances ==

== ENCOUNTER 2022-05-02 09:54 | Emergency (ER) | payer MEDICARE ==
[~2022-05-02] VITALS: Wt 68.0 kg
[2022-05-02 09:56] VITALS: BP 124/60
[2022-05-02] MEDS ORDERED: ZYRTEC10 M2 PO (10:33)
== END 2022-05-02 11:00 | disposition home or self-care (01) ==
LOC: ED 09:54
DX: J30.2 Other seasonal allergic rhinitis (principal); Z88.2 Allergy status to sulfonamides; Z79.899 Other long term (current) drug therapy; Z79.82 Long term (current) use of aspirin; Z90.710 Acquired absence of both cervix and uterus; Z87.891 Personal history of nicotine dependence

== ENCOUNTER → 2022-06-24 | Outpatient (CLI) | payer MEDICARE ==
[~2022-06-24] MED LIST changes: +ZYRTEC10 M2 PO
== END | disposition home or self-care (01) ==
LOC: RAD 09:27
PROVIDERS: ATTEND Family Medicine
DX: M16.0 Bilateral primary osteoarthritis of hip (principal); M25.752 Osteophyte, left hip; M85.851 Other specified disorders of bone density and structure, right thigh; M85.852 Other specified disorders of bone density and structure, left thigh; M25.751 Osteophyte, right hip; M47.816 Spondylosis without myelopathy or radiculopathy, lumbar region; M48.061 Spinal stenosis, lumbar region without neurogenic claudication

== ENCOUNTER → 2023-01-07 | Outpatient (CLI) | payer MEDICARE ==
[2023-01-07 09:06] LABS: BASO # 0.1 10*3/uL (0.0-0.1); BASO % 0.7 % (0.0-1.0); EOS # 0.3 10*3/uL (0.0-0.4); EOS % 3.9 % (1.0-4.0); HEMATOCRIT 42.6 % (37.0-47.0); LYMPH % 28.6 % (27.0-41.0); MEAN CELL VOLUME 93.8 fl (81.0-99.0); MEAN CORPUSCULAR HGB 30.2 pg (27.0-31.0); MEAN CORPUSCULAR HGB CONC 32.2 g/dl (33.0-37.0); MEAN PLATELET VOLUME 9.7 fl (9.6-12.3); MONO # 0.6 10*3/uL (0.1-1.0); MONO % 8.8 % (3.0-9.0); NEUT % 57.7 % (47.0-73.0); PLATELET COUNT AUTOMATED 240 10*3/uL (130-400); RED BLOOD COUNT 4.54 10*6/uL (4.10-5.10); RED CELL DISTRI WIDTH 12.9 % (0-14.5); WHITE BLOOD COUNT 6.9 10*3/uL (4.8-10.8)
[2023-01-07 10:01] LABS: ALKALINE PHOSPHATASE 61 U/L (46-116); BUN 23 mg/dl (9-23); CHLORIDE 102 mmol/L (98-107); CHOLESTEROL 110 mg/dL (<200); LDL CHOLESTEROL 45 mg/dL (9-159); SGPT/ALT 8 U/L (10-49); TOTAL PROTEIN 7.2 gm/dL (6.0-8.0); TRIGLYCERIDES 116 mg/dl (<150)
[2023-01-07 10:03] LABS: VITAMIN D, 25-HYDROXY 56.2 ng/mL (30-100)
== END | disposition home or self-care (01) ==
LOC: LAB 08:48
PROVIDERS: ATTEND Family Medicine
DX: I10 Essential (primary) hypertension (principal); E78.9 Disorder of lipoprotein metabolism, unspecified; E56.9 Vitamin deficiency, unspecified; E55.9 Vitamin D deficiency, unspecified; E78.2 Mixed hyperlipidemia; I25.10 Atherosclerotic heart disease of native coronary artery without angina pectoris

== ENCOUNTER → 2023-05-08 | Outpatient (CLI) | payer MEDICARE | LOC: RESCLI 10:30 | PROVIDERS: ATTEND Internal Medicine | DX: I10 Essential (primary) hypertension (principal); K21.9 Gastro-esophageal reflux disease without esophagitis; K52.9 Noninfective gastroenteritis and colitis, unspecified; I25.10 Atherosclerotic heart disease of native coronary artery without angina pectoris; Z86.79 Personal history of other diseases of the circulatory system; Z95.5 Presence of coronary angioplasty implant and graft; Z79.899 Other long term (current) drug therapy; Z82.49 Family history of ischemic heart disease and other diseases of the circulatory system; Z80.8 Family history of malignant neoplasm of other organs or systems; Z83.6 Family history of other diseases of the respiratory system ==

== ENCOUNTER → 2024-02-06 | Outpatient (CLI) | payer MEDICARE ==
[~2024-02-06] MED LIST changes: +CIPRO500 MG PO; +K-TAB20 MEQ PO; +METRONIDAZOLE500 M1 PO
[2024-02-06 07:48] LABS: BASO % 0.7 % (0.0-1.0); EOS # 0.1 10*3/uL (0.0-0.4); EOS % 1.6 % (1.0-4.0); HEMATOCRIT 40.8 % (37.0-47.0); LYMPH # 2.3 10*3/uL (1.3-4.4); LYMPH % 40.9 % (27.0-41.0); MEAN CELL VOLUME 93.6 fl (81.0-99.0); MEAN CORPUSCULAR HGB CONC 32.1 g/dl (33.0-37.0); MEAN PLATELET VOLUME 9.8 fl (9.6-12.3); MONO # 0.5 10*3/uL (0.1-1.0); MONO % 8.4 % (3.0-9.0); NEUT # 2.7 10*3/uL (2.3-7.9); NEUT % 48.2 % (47.0-73.0); PLATELET COUNT AUTOMATED 215 10*3/uL (130-400); RED BLOOD COUNT 4.36 10*6/uL (4.10-5.10); RED CELL DISTRI WIDTH 13.2 % (0-14.5); WHITE BLOOD COUNT 5.6 10*3/uL (4.8-10.8)
[2024-02-06 08:59] LABS: ALKALINE PHOSPHATASE 54 U/L (46-116); BUN 14 mg/dl (9-23); CHLORIDE 105 mmol/L (98-107); POTASSIUM 3.9 mmol/L (3.4-5.1); SGPT/ALT 28 U/L (5-49); TOTAL PROTEIN 6.6 gm/dL (6.0-8.0)
== END | disposition home or self-care (01) ==
LOC: LAB 00:59
PROVIDERS: ATTEND Internal Medicine
DX: K57.32 Diverticulitis of large intestine without perforation or abscess without bleeding (principal); D72.829 Elevated white blood cell count, unspecified